=== PATIENT | male | born 1985 | race Caucasian/White ===

== ENCOUNTER 2023-12-03 08:18 | Day surgery (SDC) | payer BC ==
[~2023-12-03 08:18] MED LIST: Sodium Chloride 0.9% 10 ML Syringe FLUSH PRN; Sodium Chloride 0.9% 10 ML Syringe FLUSH SCH
[2023-12-03] MEDS ORDERED: fentaNYL 250 MCG/5 ML SDV ONE (09:05)
[2023-12-03] MEDS ORDERED: Midazolam 1 MG/ML 2 ML SDV ONE (09:05)
[2023-12-03] MEDS ORDERED: Propofol 200 MG/20 ML SDV ONE (09:05)
[2023-12-03] MEDS ORDERED: Lidocaine 1% 5 ML VIAL ONE (09:05)
[2023-12-03] MEDS ORDERED: Ondansetron 4 MG/2 ML SDV ONE (09:05)
[2023-12-03] MEDS ORDERED: Rocuronium 50 MG/5 ML Vial ONE (09:05)
[2023-12-03] MEDS ORDERED: HYDROmorphone 0.5 MG/0.5 ML Syringe ONE ×2 (09:37→10:10)
[2023-12-03] MEDS ORDERED: ceFAZolin 2 GM Vial ONE (09:37)
[2023-12-03] MEDS ORDERED: Lactated Ringers 1,000 ML ONE (09:43)
[2023-12-03] MEDS ORDERED: Dexamethasone 4 MG/ML 5 ML MDV ONE (09:43)
[2023-12-03] MEDS: Acetaminophen 325 MG Tab PO SCH (09:43)
[2023-12-03] MEDS: Gabapentin 300 MG Cap PO SCH (09:44)
[2023-12-03] MEDS: Lactated Ringers 1,000 ML IV SCH (09:47)
[2023-12-03] MEDS ORDERED: HYDROmorphone 0.5 MG/0.5 ML Syringe IVPUSH PRN (10:21)
[2023-12-03] MEDS ORDERED: fentaNYL 100 MCG/2 ML SDV IVPUSH PRN (10:21)
[2023-12-03] MEDS ORDERED: Ondansetron 4 MG/2 ML SDV IVPUSH PRN (10:21)
[2023-12-03] MEDS ORDERED: fentaNYL 100 MCG/2 ML SDV ONE (10:44)
[2023-12-03] MEDS ORDERED: Neostigmine Methylsulfate 10 MG/10 ML MDV ONE (10:48)
[2023-12-03] MEDS ORDERED: Ketorolac 30 MG/ML SDV ONE (10:52)
[2023-12-03] MEDS: Bupivacaine 0.5% 30 ML SDV ONE (10:59)
[2023-12-03] MEDS: EPINEPHrine 1 MG/ML SDV ONE (10:59)
[2023-12-03] MEDS: Lidocaine 1% 30 ML SDV ONE (10:59)
[2023-12-03] MEDS: Acetaminophen/oxyCODONE 325-5 MG Tab PO PRN (14:22)
== END 2023-12-03 15:20 | disposition home or self-care (01) ==
LOC: JD.SDS 08:18
PROVIDERS: ATTEND Surgery
DX: K80.12 Calculus of gallbladder with acute and chronic cholecystitis without obstruction (principal); F17.290 Nicotine dependence, other tobacco product, uncomplicated; Z79.899 Other long term (current) drug therapy
CPT/HCPCS: 00790; A9270-GY; J0171; J0665; J0690; J1100; J1170; J1596; J1885; J2250; J2405; J2704; J2710; J3010; J3490; J7120